=== PATIENT | female | born 1960 | race Caucasian/White ===

== ENCOUNTER 2021-07-14 10:56 | Outpatient (CLI) | payer BC | END 2021-07-14 10:57 | disposition home or self-care (01) | LOC: BICMAMMO 10:56 | PROVIDERS: ATTEND Family Medicine | DX: Z12.31 Encounter for screening mammogram for malignant neoplasm of breast (principal); Z80.3 Family history of malignant neoplasm of breast | CPT/HCPCS: 77063; 77067 ==

== ENCOUNTER 2022-09-20 12:43 | Outpatient (CLI) | payer BC | END 2022-09-20 12:44 | disposition home or self-care (01) | LOC: BICMAMMO 12:43 | PROVIDERS: ATTEND Family Medicine | DX: Z12.31 Encounter for screening mammogram for malignant neoplasm of breast (principal) | CPT/HCPCS: 77063; 77067 ==

== ENCOUNTER 2023-11-05 11:27 | Outpatient (CLI) | payer MEDICARE | END 2023-11-05 11:28 | disposition home or self-care (01) | LOC: BICMAMMO 11:27 | PROVIDERS: ATTEND Internal Medicine | DX: Z12.31 Encounter for screening mammogram for malignant neoplasm of breast (principal); Z80.3 Family history of malignant neoplasm of breast | CPT/HCPCS: 77063; 77067 ==

== ENCOUNTER 2024-02-04 15:30 | Inpatient (IN) | payer MEDICARE ==
[~2024-02-04 15:30] MED LIST: Iopamidol-370 76% 500 ML MDV (1 ML CHARGE) ONE
[2024-02-04 16:17] LABS: #Basophils 0.03 10x3/uL (0.0-0.2); %Basophils 0.2 % (0.0-1.0); %Eosinophils 1.2 % (0.0-10.0); %Lymphocytes 9.7 % (21.0-51.0); %Neutrophils 84.3 % (42.0-75.0); Hematocrit 38.3 % (36.0-47.0); Hemoglobin 12.7 g/dL (12.0-16.0); Mean Corpuscular HGB CONC 33.2 g/dL (32.0-36.0); Mean Corpuscular Volume 93.4 fL (78.0-98.0); Mean Platelet Volume 11.5 fL (7.4-10.4); Platelet Count 228 10x3/uL (130-400); RBC Distribution Width 12.5 % (11.5-14.5)
[2024-02-04 16:35] LABS: Bilirubin Negative (Negative); Blood, Urine 2+ (Negative); CAUTI Indications for Culture Dysuria,urgency,freq; Clarity Turbid (Clear); Glucose, Urine (Dipstick) Normal (Negative); Ketone, Urine Negative (Negative); Leukocyte 75 Leu/uL (Negative); Nitrite Negative (Negative); Protein, Urine (Dipstick) 30 mg/dL (Neg-Trace); RBC/HPF 0-3 HPF (0-3); Specific Gravity, Urine 1.022 (1.002-1.036); Urobilinogen Normal mg/dL (Less than 2); pH, Urine 5.5 (5.0-9.0)
[2024-02-04 16:36] LABS: Bacteria/HPF 1+ HPF (None Seen)
[2024-02-04 16:37] LABS: Urine Culture Reflex No No
[2024-02-04 16:50] LABS: Globulin 3.9 g/dL (2.4-3.5)
[2024-02-04] MEDS ORDERED: Ondansetron PF 4 MG/2 ML Vial ONE (16:50)
[2024-02-04] MEDS ORDERED: Ketorolac Tromethamine 30 MG (1 mL) VIAL ONE (16:50)
[2024-02-04 16:55] LABS: ALT (SGPT) 23 U/L (8-55); AST (SGOT) 20 U/L (5-34); Albumin 3.6 g/dL (3.4-4.8); Alkaline Phosphatase 98 U/L (40-110); Anion Gap 15 mmol/L (10-20); BUN (Urea Nitrogen) 10 mg/dL (9.8-20.1); Bilirubin, Total 0.6 mg/dL (0.2-1.2); Calc. Creatinine Clearance 0 mL/min (70-130); Calcium 9.5 mg/dL (7.8-10.44); Carbon Dioxide 26 mmol/L (23-31); Chloride 100 mmol/L (98-107); Estimated GFR 61; Glucose 135 mg/dL (80-115); Potassium 3.1 mmol/L (3.5-5.1); Protein, Total 7.5 g/dL (5.8-8.1); Sodium 138 mmol/L (136-145)
[2024-02-04] MEDS ORDERED: metroNIDAZOLE 500 MG (100 mL) BAG ONE (19:01)
[2024-02-04 20:21] LABS: Lactic Acid 0.8 mmol/L (0.5-2.2)
[2024-02-04] MEDS ORDERED: Potassium Bicarbonate/Cit Ac 20 MEQ TAB ONE (20:46)
[2024-02-04] MEDS ORDERED: Ciprofloxacin Lactate D5W 400 mg (200 mL) BAG ONE (20:46)
[2024-02-04] MEDS ORDERED: Ciprofloxacin Lactate/D5W 400 MG in Premix 1 BAG IVPB SCH (21:00)
[2024-02-04 21:58] LABS: Magnesium 2.2 mg/dL (1.6-2.6)
[2024-02-04 22:06] VITALS: BMI 31.1
[2024-02-04] MEDS: metroNIDAZOLE 500 MG in Premix 1 BAG IVPB SCH (22:24)
[2024-02-04] MEDS: Sodium Chloride 0.9% 1,000 ML IV SCH (22:28)
[2024-02-05] MEDS: Acetaminophen 325 MG TAB PO PRN (03:35)
[2024-02-05] MEDS ORDERED: metroNIDAZOLE 500 MG in Premix 1 BAG IVPB SCH (04:00)
[2024-02-05 07:12] LABS: #Basophils Less than 0.03 10x3/uL (0.0-0.2); %Basophils 0.2 % (0.0-1.0); %Eosinophils 5.3 % (0.0-10.0); %Lymphocytes 19.4 % (21.0-51.0); %Monocytes 6.6 % (0.0-10.0); %Neutrophils 68.1 % (42.0-75.0); Hematocrit 29.5 % (36.0-47.0); Mean Corpuscular HGB CONC 33.9 g/dL (32.0-36.0); Mean Corpuscular Hemoglobin 31.5 pg (27.0-31.0); Mean Corpuscular Volume 93.1 fL (78.0-98.0); Mean Platelet Volume 11.4 fL (7.4-10.4); Platelet Count 159 10x3/uL (130-400); RBC Distribution Width 12.4 % (11.5-14.5); Red Blood Cell (RBC) Count 3.17 mill/uL (4.20-5.40)
[2024-02-05 07:35] LABS: Anion Gap 11 mmol/L (10-20); BUN (Urea Nitrogen) 9 mg/dL (9.8-20.1); Calc. Creatinine Clearance 70 mL/min (70-130); Calcium 8.1 mg/dL (7.8-10.44); Carbon Dioxide 23 mmol/L (23-31); Chloride 106 mmol/L (98-107); Estimated GFR 71; Glucose 108 mg/dL (80-115); Magnesium 1.8 mg/dL (1.6-2.6); Sodium 137 mmol/L (136-145)
[2024-02-05] MEDS: Potassium Chloride 20 MEQ TAB PO SCH (08:22)
[2024-02-05] MEDS: Ciprofloxacin Lactate/D5W 400 MG in Premix 1 BAG IVPB SCH (08:23)
[2024-02-05 14:10] VITALS: BMI 31.1
[2024-02-05] MEDS: Vancomycin HCl 125 MG Capsule PO SCH (14:48)
[2024-02-05] MEDS: Rosuvastatin 20 MG TAB PO SCH (20:39)
[2024-02-05 20:54] LABS: Campy jejuni + coli by PCR Negative (Negative); STEC Shiga Toxin 1+2 POSITIVE (Negative); Salmonella spp. by PCR Negative (Negative); Shigella spp + EIEC by PCR Negative (Negative)
[2024-02-06] MEDS: Ondansetron PF 4 MG/2 ML Vial IVP PRN (00:53)
[2024-02-06 06:32] LABS: #Basophils 0.05 10x3/uL (0.0-0.2); %Basophils 0.5 % (0.0-1.0); %Eosinophils 8.2 % (0.0-10.0); %Lymphocytes 18.3 % (21.0-51.0); %Monocytes 6.9 % (0.0-10.0); %Neutrophils 65.8 % (42.0-75.0); Hematocrit 29.3 % (36.0-47.0); Mean Corpuscular HGB CONC 34.1 g/dL (32.0-36.0); Mean Corpuscular Hemoglobin 30.9 pg (27.0-31.0); Mean Corpuscular Volume 90.4 fL (78.0-98.0); Mean Platelet Volume 11.5 fL (7.4-10.4); Platelet Count 164 10x3/uL (130-400); RBC Distribution Width 12.4 % (11.5-14.5); Red Blood Cell (RBC) Count 3.24 mill/uL (4.20-5.40)
[2024-02-06 06:47] LABS: Anion Gap 12 mmol/L (10-20); BUN (Urea Nitrogen) 6 mg/dL (9.8-20.1); Calc. Creatinine Clearance 75 mL/min (70-130); Calcium 8.1 mg/dL (7.8-10.44); Carbon Dioxide 21 mmol/L (23-31); Chloride 113 mmol/L (98-107); Estimated GFR 77; Glucose 113 mg/dL (80-115); Magnesium 1.9 mg/dL (1.6-2.6); Potassium 4.1 mmol/L (3.5-5.1); Sodium 142 mmol/L (136-145)
[2024-02-06] MEDS: Citalopram 10 MG TAB PO SCH (08:13)
[2024-02-06] MEDS: Aspirin Chewable 81 MG TAB PO SCH (08:13)
[2024-02-06] MEDS: Hydrochlorothiazide 25 MG TAB PO SCH (08:14)
[2024-02-06] MEDS: Losartan 25 MG TAB PO SCH (08:14)
[2024-02-06] MEDS: Enoxaparin 40 MG (0.4 mL) SYRINGE SC SCH (16:50)
[2024-02-07 01:13] VITALS: TEMP 98.4
[2024-02-07 05:21] LABS: #Basophils 0.03 10x3/uL (0.0-0.2); %Basophils 0.3 % (0.0-1.0); %Eosinophils 5.8 % (0.0-10.0); %Lymphocytes 19.5 % (21.0-51.0); %Monocytes 6.1 % (0.0-10.0); %Neutrophils 67.6 % (42.0-75.0); Hematocrit 31.9 % (36.0-47.0); Hemoglobin 10.6 g/dL (12.0-16.0); Mean Corpuscular HGB CONC 33.2 g/dL (32.0-36.0); Mean Corpuscular Hemoglobin 30.7 pg (27.0-31.0); Mean Corpuscular Volume 92.5 fL (78.0-98.0); Mean Platelet Volume 11.1 fL (7.4-10.4); Platelet Count 205 10x3/uL (130-400); RBC Distribution Width 12.4 % (11.5-14.5); Red Blood Cell (RBC) Count 3.45 mill/uL (4.20-5.40)
[2024-02-07 05:40] LABS: Anion Gap 11 mmol/L (10-20); BUN (Urea Nitrogen) 6 mg/dL (9.8-20.1); Calc. Creatinine Clearance 73 mL/min (70-130); Calcium 8.4 mg/dL (7.8-10.44); Carbon Dioxide 23 mmol/L (23-31); Chloride 111 mmol/L (98-107); Estimated GFR 74; Glucose 105 mg/dL (80-115); Magnesium 1.9 mg/dL (1.6-2.6); Potassium 3.2 mmol/L (3.5-5.1); Sodium 142 mmol/L (136-145)
[2024-02-07 07:26] VITALS: BP 168/76
[2024-02-07] MEDS: Enoxaparin 40 MG (0.4 mL) SYRINGE SC SCH (09:04)
[2024-02-07] MEDS: Potassium Chloride 20 MEQ in Premix 1 BAG IVPB SCH (11:48)
[2024-02-07] MEDS: Potassium Chloride 20 MEQ TAB PO SCH (12:59)
== END 2024-02-07 16:05 | disposition home or self-care (01) | DRG 872 ==
LOC: ERS 15:30 → INTOOBSV 19:52 → T4-B 19:52 → OBSVTOIN 02-06 15:25
PROVIDERS: ADMIT Internal Medicine; ATTEND Hospitalist
DX: A41.9 Sepsis, unspecified organism (principal); A04.72 Enterocolitis due to Clostridium difficile, not specified as recurrent; E87.20 Acidosis, unspecified; E87.6 Hypokalemia; I10 Essential (primary) hypertension; I25.10 Atherosclerotic heart disease of native coronary artery without angina pectoris; Z79.82 Long term (current) use of aspirin; Z79.899 Other long term (current) drug therapy; E78.5 Hyperlipidemia, unspecified; F41.9 Anxiety disorder, unspecified; Z98.51 Tubal ligation status; Z82.49 Family history of ischemic heart disease and other diseases of the circulatory system; E78.00 Pure hypercholesterolemia, unspecified
CPT/HCPCS: 36415; 74177; 80048; 80053; 81001; 83605; 83735; 84145; 85025; 86141; 87040; 87077; 87086; 87186; 87324; 87449; 87493; 87505; 96361; 96374; 96375; J0744; J1650; J1885; J2405; J3480; J7050